=== PATIENT | female | born 1985 | race Caucasian/White ===

== ENCOUNTER 2016-10-15 14:52 | Inpatient (IN) | payer MEDICAID ==
[~2016-10-15] VITALS: Ht 157.5 cm; Wt 93.0 kg
[~2016-10-15 14:52] MED LIST: CEPH500; FERR324T4 PO; OXYC-360 PO; PRENTAB72 PO; SENN1TAB11 PO
[2016-10-22 10:05] VITALS: BP 129/71; PULSE 93
--- NOTE | 2016-10-22 10:40 | MH ---
cc: SPARKLE MA DATE OF ADMISSION 10/22/2016 REASON FOR ADMISSION 1. Intrauterine at 39 weeks. 2. History of deliveries x 2 HISTORY OF PRESENT ILLNESS Ms. Garcia is a 31-year-old female para 2-0-3-2 who is at 39 weeks plus today and is being brought in for a repeat section. She is 39 weeks by early ultrasound and dates and she has been followed in the office without any significant problems. She did have a history of oligohydramnios in previous pregnancies and we had followed that. She understands the risks and the benefits of the procedure and has agreed to proceed. PAST OB HISTORY She is para 2-0-3-2. She has had two sections at term, two SABs and one TAB. 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 PAST SURGICAL HISTORY She has had sections x 2. PAST MEDICAL HISTORY History of oligohydramnios. SOCIAL HISTORY She is single. She does not smoke, drink or take drugs. FAMILY HISTORY Remarkable for melanotic colon cancer, high cholesterol, high blood pressure, depression, diabetes and Alzheimer's. CURRENT MEDICATIONS vitamins. ALLERGIES No known drug allergies. REVIEW OF SYSTEMS No headaches, no shortness of breath, no chest pain or pressure. The baby is moving well. She denies any rupture of membranes or bleeding. PHYSICAL EXAMINATION GENERAL: A well-developed, well-nourished female in no acute distress, resting comfortably. VITAL SIGNS: Blood pressure is 120/78. Her weight is 205. HEENT: Normocephalic, atraumatic. NECK: Supple. Trachea is in the midline. No thyromegaly or adenopathy. CHEST: Clear to auscultation. HEART: Regular rate and rhythm, without murmur or gallop. ABDOMEN: Gravid, soft, nontender. The fundus is nontender. The baby feels to be in vertex presentation. PELVIC EXAM: Deferred. EXTREMITIES: There is no clubbing or cyanosis. There is a little bit of 1+ pitting edema in the lower extremities. ASSESSMENT AND PLAN 1. Intrauterine at 39+ weeks with a previous section x 2. We will go ahead and repeat that. We will go ahead and give her prophylactic antibiotics for that as well. 2. History of oligohydramnios. We will follow this. R. Sparkle Ma MD RJV/SSB /10:12 AM /10:31 AM
[2016-10-22] MEDS ORDERED: OXYTOCIN 10 UNIT/ML AMP ONE (11:02)
[2016-10-22 11:04] LABS: BACTERIA, URINE MOD /hpf; BLOOD, URINE NEG (NEG); COMMENT (UR) CULTURE INDICATED; CULTURE IF INDICATED CULTURE INDICATED; GLUCOSE,URINE NEG (NEG); HYALINE CAST, URINE 1 /lpf (RARE); KETONE, URINE TRACE mg/dL (NEG); MUCUS URINE FEW /lpf (OCC); NITRITE,URINE NEG (NEG); SQUAMOUS EPITHELIAL CELL URINE 4 /hpf (0-5); URINE COLOR YELLOW (YELLW/STRAW)
[2016-10-22 11:04] LABS: AUTOMATED NEUTROPHIL # 8.5 TH/MM3 (1.8-7.7); BASOPHIL % 0.3 % (0.0-2.0); EOSINOPHIL # 0.1 TH/MM3 (0-0.4); EOSINOPHIL % 0.9 % (0.0-4.0); HEMATOCRIT 37.1 % (35.0-46.0); HEMO FLAGS DIFF FINAL; LYMPH % 19.8 % (9.0-44.0); LYMPHOCYTE # 2.3 TH/MM3 (1.0-4.8); MEAN CELL VOLUME 82.5 FL (80.0-100.0); MEAN CORPUSCULAR HEMOGLOBIN 26.8 PG (27.0-34.0); MEAN CORPUSCULAR HGB CONC 32.5 % (32.0-36.0); MONO % 6.5 % (0.0-8.0); NEUT % 72.5 % (16.0-70.0); PLATELET COUNT 284 TH/MM3 (150-450); RED CELL DISTRIBUTION WIDTH 14.7 % (11.6-17.2); WHITE BLOOD COUNT 11.7 TH/MM3 (4.0-11.0)
[2016-10-22] MEDS ORDERED: LACTATED RINGER'S 1000 ML IV SCH (11:30)
[2016-10-22] MEDS ORDERED: LACTATED RINGER'S 1000 ML IV ONE (11:30)
[2016-10-22] MEDS ORDERED: ceFAZolin 2 GM PREMIX 50 ML IV SCH (11:30)
[2016-10-22] MEDS ORDERED: CITRIC ACID-SODIUM CITRATE LIQ 30 ML UDC PO SCH (11:30)
[2016-10-22 13:55] VITALS: BP 127/68; PULSE 109; RESP 17; TEMP 97.7; O2SAT 98
[2016-10-22] MEDS ORDERED: ONDANSETRON HCL 4 MG/2 ML VIAL ONE (13:56)
[2016-10-22] MEDS ORDERED: MORPHINE SULFATE PF 5 MG/10 ML VIAL ONE (13:56)
[2016-10-22] MEDS ORDERED: LACTATED RINGER'S 1,000 ML BAG IV ONE (14:13)
[2016-10-22 14:25] VITALS: BP 116/71; PULSE 100; O2SAT 97
[2016-10-22] MEDS ORDERED: OXYTOCIN 30 UNITS-500ML PREMIX 500 ML ONE (14:28)
[2016-10-22 14:34] VITALS: BP 124/67; PULSE 100; RESP 18; O2SAT 96
[2016-10-22 14:50] VITALS: BP 127/73; PULSE 95; RESP 18; TEMP 97.9; O2SAT 99
[2016-10-22 15:50] VITALS: BP 125/66; PULSE 85; RESP 16; TEMP 98.1
[2016-10-22] MEDS ORDERED: SIMETHICONE 80 MG CHEWABLE TAB PO PRN (17:15)
[2016-10-22] MEDS ORDERED: OXYTOCIN 30 UNITS-500ML PREMIX 500 ML IV ONE ×2 (17:15)
[2016-10-22] MEDS ORDERED: ONDANSETRON HCL 4 MG/2 ML VIAL IV PUSH PRN (17:15)
[2016-10-22] MEDS ORDERED: SODIUM CHLORIDE 0.9% FLUSH 5 ML FLUSH IV PRN (17:15)
[2016-10-22] MEDS ORDERED: ZOLPIDEM TARTRATE 5 MG TAB PO PRN (17:15)
[2016-10-22] MEDS: SODIUM CHLORIDE 0.9% FLUSH 5 ML FLUSH IV SCH (20:25)
[2016-10-22] MEDS ORDERED: LACTATED RINGER'S 1000 ML INJ 1,000 ML IV SCH (22:04)
[2016-10-23] MEDS ORDERED: OXYTOCIN 30 UNITS-500ML PREMIX 500 ML IV PRN (03:15)
[2016-10-23] MEDS: oxyCODONE/ACETAMINOPHEN 5 MG/325 MG TAB PO PRN ×4 (04:00→19:24)
[2016-10-23 05:57] LABS: AUTOMATED NEUTROPHIL # 7.7 TH/MM3 (1.8-7.7); BASOPHIL % 0.2 % (0.0-2.0); EOSINOPHIL % 0.5 % (0.0-4.0); HEMATOCRIT 28.8 % (35.0-46.0); HEMO FLAGS DIFF FINAL; LYMPH % 13.7 % (9.0-44.0); LYMPHOCYTE # 1.3 TH/MM3 (1.0-4.8); MEAN CELL VOLUME 82.7 FL (80.0-100.0); MEAN CORPUSCULAR HEMOGLOBIN 27.4 PG (27.0-34.0); MEAN CORPUSCULAR HGB CONC 33.2 % (32.0-36.0); NEUT % 78.6 % (16.0-70.0); PLATELET COUNT 226 TH/MM3 (150-450); RED BLOOD COUNT 3.48 MIL/MM3 (4.00-5.30); RED CELL DISTRIBUTION WIDTH 14.9 % (11.6-17.2); WHITE BLOOD COUNT 9.8 TH/MM3 (4.0-11.0)
--- NOTE | 2016-10-23 10:21 | HHI.OB ---
Subjective Post Operative Day: 1 Objective Vitals/I&O Vital Signs Date Time Temp Pulse Resp B/P Pulse Ox O2 Delivery O2 Flow Rate FiO2 10/22/16 14:50 95 127/73 10/22/16 14:34 124/67 10/22/16 14:34 100 18 96 10/22/16 14:25 100 116/71 97 10/22/16 13:55 97.7 109 17 127/68 98 Result Diagram: 10/23/16 0519 Objective Remarks GENERAL: Well-nourished, well-developed patient. CARDIOVASCULAR: Regular rate and rhythm without murmurs, gallops, or rubs. RESPIRATORY: Breath sounds equal bilaterally. No accessory muscle use. ABDOMEN/GI: Abdomen soft, non-tender, bowel sounds present. Incision: dressing, Clean, dry and intact. Fundus: Firm, non-tender at umbilicus. GENITOURINARY: Light to moderate bleeding. EXTREMITIES: No cyanosis or edema, non-tender, without signs of DVT. Medications and IVs Current Medications Medications (Trade) Dose Ordered Sig/Richard Route Start Time Stop Time Status Last Admin (Lr 1000 ml Inj) 1,000 ml @ 100 mls/hr Q10H IV 10/22/16 22:04 10/23/16 18:03 10/22/16 20:27 (NS Flush) 2 ml BID IV 10/22/16 21:00 (NS Flush) 2 ml UNSCH PRN IV 10/22/16 17:15 (Mylicon Chew) 80 mg QID PRN PO 10/22/16 17:15 (Percocet 5-325 Mg) 1 tab Q4H PRN PO 10/22/16 17:15 10/23/16 08:27 (Percocet 5-325 Mg) 2 tab Q4H PRN PO 10/22/16 17:15 (Estefani-Colace) 2 tab Q12H PRN PO 10/22/16 17:15 (Ambien) 5 mg HS PRN PO 10/22/16 17:15 (M-M-R Ii Inj) 0.5 ml ONCE ONCE SQ 10/23/16 16:00 10/23/16 16:01 (Boostrix Inj) 0.5 ml ONCE ONCE IM 10/23/16 16:00 10/23/16 16:01 (Zofran Inj) 4 mg Q6H PRN IV PUSH 10/22/16 17:15 10/22/16 17:46 Assessment/Plan Problem List: (1) Anemia Plan: treat pp (2) S/P repeat low transverse Plan: routine Assessment and Plan POD #1 pt doing well will shower today and remove dressing added motrin to oral pain meds routine post op care Discharge Planning consider dc in 1-2 days Radha Buchanan Oct 23, 2016 10:20
--- NOTE | 2016-10-23 10:22 | HHI.DCPOC ---
Discharge Care Plan Diagnosis: (1) S/P repeat low transverse (2) Anemia Your Health Problems Are: delivery Report Symptoms to Your Doctor -Temperate above 100.5 degrees -Redness, of incision or excessive or foul smelling drainage -Unusual pain or calf pain -Increased vaginal bleeding -Painful or difficulty urinating -Feelings of extreme sadness or anxiety after 2 weeks Goals to Promote Your Health * To prevent worsening of your condition and complications * To maintain your health at the optimal level Directions to Meet Your Goals Take your medications as prescribed Follow your dietary instruction Follow activity as directed Ensure plenty of rest for recovery Drink fluids for hydration Keep your appointments as scheduled Take your immunizations and boosters as scheduled If your symptoms worsen call your PCP, if no PCP go to Urgent Care Center or Emergency Room Smoking is Dangerous to Your Health. Avoid second hand smoke Call the 24-hour crisis hotline for domestic abuse at Radha Buchanan Oct 23, 2016 10:21
[2016-10-23] MEDS: DOCUSATE SODIUM 50 MG/SENNA 8.6 MG TAB PO PRN (13:30)
[2016-10-23] MEDS: IBUPROFEN 600 MG TAB PO PRN ×2 (13:30→19:25)
[2016-10-23] MEDS ORDERED: DIPHTH/TETANUS/ACEL PERTUSSIS (BOOSTER) 0.5 ML VIAL/PFS IM ONE (16:00)
[2016-10-23] MEDS ORDERED: MEASLES, MUMPS, RUBELLA VACCINE 0.5 ML VIAL SQ ONE (16:00)
[2016-10-24] MEDS: oxyCODONE/ACETAMINOPHEN 5 MG/325 MG TAB PO PRN ×2 (04:05→08:54)
[2016-10-24] MEDS: DOCUSATE SODIUM 50 MG/SENNA 8.6 MG TAB PO PRN (04:05)
[2016-10-24] MEDS: IBUPROFEN 600 MG TAB PO PRN ×2 (04:05→13:32)
[2016-10-24] MEDS ORDERED: OXYC1TAB63 PO (08:36)
[2016-10-24] MEDS ORDERED: IBUP-232 PO (08:36)
[2016-10-24] MEDS: SODIUM CHLORIDE 0.9% FLUSH 5 ML FLUSH IV SCH (08:56)
--- NOTE | 2016-10-24 12:31 | HHI.OB ---
Subjective Post Operative Day: 2 Objective Result Diagram: 10/23/16 0519 Objective Remarks GENERAL: Well-nourished, well-developed patient. CARDIOVASCULAR: Regular rate and rhythm without murmurs, gallops, or rubs. RESPIRATORY: Breath sounds equal bilaterally. No accessory muscle use. ABDOMEN/GI: Abdomen soft, non-tender, bowel sounds present. Incision: , Clean, dry and intact. Fundus: Firm, non-tender at umbilicus. GENITOURINARY: Light to moderate bleeding. EXTREMITIES: No cyanosis or edema, non-tender, without signs of DVT. Medications and IVs Current Medications Medications (Trade) Dose Ordered Sig/Richard Route Start Time Stop Time Status Last Admin (NS Flush) 2 ml BID IV 10/22/16 21:00 (NS Flush) 2 ml UNSCH PRN IV 10/22/16 17:15 (Mylicon Chew) 80 mg QID PRN PO 10/22/16 17:15 (Percocet 5-325 Mg) 1 tab Q4H PRN PO 10/22/16 17:15 10/23/16 08:27 (Percocet 5-325 Mg) 2 tab Q4H PRN PO 10/22/16 17:15 10/24/16 08:54 (Estefani-Colace) 2 tab Q12H PRN PO 10/22/16 17:15 10/24/16 04:05 (Ambien) 5 mg HS PRN PO 10/22/16 17:15 (Zofran Inj) 4 mg Q6H PRN IV PUSH 10/22/16 17:15 10/22/16 17:46 (Motrin) 600 mg Q6H PRN PO 10/23/16 10:15 10/24/16 04:05 Assessment/Plan Problem List: (1) Anemia Plan: treat pp (2) S/P repeat low transverse Plan: routine Assessment and Plan POD #2 pt doing well denies dizziness, sob with ambulation pain well managed with oral pain meds routine care Discharge Planning consider dc in 1-2 days Radha Buchanan Oct 24, 2016 12:31
--- NOTE | 2016-10-24 14:26 | HHI.DS ---
Admission Date Oct 22, 2016 at 09:53 Discharge Date: Oct 24, 2016 Admitting Diagnosis 39 weeks previous c section x 2 Diagnosis: (1) Anemia Diagnosis: Secondary (2) S/P repeat low transverse Diagnosis: Principal Delivery Date: Oct 22, 2016 : Repeat Reason: previous c section x 2 Brief History 39 week previous c setion repeat c section Hospital Course routine Pt Condition on Discharge: Good Discharge Disposition: Discharge Home Discharge Instructions Diet Instructions: As Tolerated, No Restrictions Activities You Can Perform: Shower Only-No Bath, Pelvic Rest Activities to Avoid: Strenuous Activity, Sexual Activity Follow up Referrals: MEDICAL RESEARCH ASSOCIATE - 1 Week New Medications: Ibuprofen (Ibuprofen) 600 Mg Tab 600 MG PO Q6H PRN pain #30 TAB Oxycodone-Acetaminophen (Oxycodone-Acetaminophen) 5-325 mg Tab 1 TAB PO Q4H PRN moderate pain #30 TAB Continued Medications: Vit W/ Ferrous Fumara () Tab 1 PO Radha Buchanan Oct 24, 2016 14:26
--- NOTE | 2016-10-25 15:45 | MP ---
cc: New MA MD DATE OF SURGERY: 10/22/2016 PREOPERATIVE DIAGNOSIS: Intrauterine at 39 weeks. Previous section times two for repeat. POSTOPERATIVE DIAGNOSIS: Intrauterine at 39 weeks. Previous section times two for repeat. OPERATION: Repeat low transverse section. ANESTHESIA: Spinal. SURGEON: New Ma MD. FINDINGS: Normal male infant with a weight of 8 lbs, 9 ounces, 's 8 and 9, normal tubes, normal ovaries, normal cul-de-sacs. COUNTS: Correct. ESTIMATED BLOOD LOSS 600 cc. FLUIDS/CRYSTALLOIDS: The patient tolerated the procedure well and went to the Recovery Room in good condition. The placenta could not be donated because of the traveling to the [place] infested area around [place]. CONDITION: The patient tolerated the procedure well and went to the recovery room in satisfactory condition. PROCEDURE: The patient was taken to the operating room identified by name band and verbally. She was given a spinal anesthetic. A Klein catheter was inserted. She was prepped and draped for section. The old Pfannenstiel incision was removed and excised completely and the incision was taken down to the fascia. The fascia was taken off the rectus muscle by blunt and sharp dissection. The peritoneum was entered under direct vision without complication. The incision was extended with care to avoid the urinary bladder. A bladder blade was placed and a bladder flap created over the lower uterine segment which was well-developed. The uterus was then scored in a transverse manner along the lower uterine segment and taken down in the midline until the uterine cavity was entered. The incision was extended with the surgeon's fingers. The vertex was grasped and delivered through the incision without difficulty. The hypopharynx and nasopharynx were suctioned. The remainder of the infant was delivered. The cord was doubly clamped and cut and the handed to the resuscitation team that was present. Cord blood was obtained. The placenta was delivered manually without difficulty. The uterus was curettaged twice with a wet lap. The uterine incision was repaired with 2-0 Vicryl a running locking fashion, the second layer imbricating the first. The cul-de-sac and gutters were cleaned of blood and debris with a large amount of irrigation. The uterus was delivered back into the abdomen. The incision was again inspected and was hemostatic. The rectus muscles were reapproximated with 0 Vicryl in an interrupted fashion. The fascia was repaired with 0 Vicryl from lateral to midline bilaterally in a running fashion. The subcutaneous tissue was repaired with 3-0 Vicryl. The skin was repaired with 4-0 Monocryl in a subcuticular manner. Steri-Strips were applied. The wound was sterilely dressed. She tolerated the procedure well and went to the recovery room in good condition. R. MD ELIAN Campos/dante /1:52 PM /3:32 PM
== END 2016-10-24 14:15 | disposition home or self-care (01) | DRG 766 ==
LOC: H2EB 10-22 09:53 → H1EA 10-22 15:41
PROVIDERS: ADMIT Obstetrics & Gynecology; ATTEND Obstetrics & Gynecology
PROC: 10D00Z1 Extraction of Products of Conception, Low, Open Approach (ICD-10-PCS; principal; 2016-10-22)
DX: O34.219 Maternal care for unspecified type scar from previous cesarean delivery (principal); O99.02 Anemia complicating childbirth; D64.9 Anemia, unspecified; Z37.0 Single live birth; Z3A.39 39 weeks gestation of pregnancy
CPT/HCPCS: 59025; 81001; 85025; 86850; 86900; 86901; 87086; 90715; J0690; J2274; J2405; J2590; J3010; J7120

== ENCOUNTER → 2018-01-08 | Outpatient (CLI) | payer MEDICAID, OTHER ==
[~2018-01-08] MED LIST changes: -CEPH500; +DIAZ5; -FERR324T4 PO; +FERR325T18 PO; +FEXO15TA PO; +IBUP-232 PO; +MULT-65 PO; +NORG1TAB28 PO; -OXYC-360 PO; +OXYC1TAB63 PO; +PERC5TAB12 PO; +PROZ40CA PO; -SENN1TAB11 PO; +VENTAER INH; +VITA3000 PO
[2018-01-08 13:00] LABS: HEMATOCRIT 41.9 % (35.0-46.0); HEMOGLOBIN 13.6 GM/DL (11.6-15.3); MEAN CELL VOLUME 85.9 FL (80.0-100.0); MEAN CORPUSCULAR HEMOGLOBIN 27.9 PG (27.0-34.0); MEAN CORPUSCULAR HGB CONC 32.4 % (32.0-36.0); PLATELET COUNT 435 TH/MM3 (150-450); RED BLOOD COUNT 4.88 MIL/MM3 (4.00-5.30); RED CELL DISTRIBUTION WIDTH 13.5 % (11.6-17.2); WHITE BLOOD COUNT 12.5 TH/MM3 (4.0-11.0)
== END ==
LOC: CPRE 12:29
PROVIDERS: ATTEND Obstetrics & Gynecology
DX: Z01.812 Encounter for preprocedural laboratory examination (principal)
CPT/HCPCS: 36415; 84703; 85027

== ENCOUNTER → 2018-01-14 | Day surgery (SDC) | payer MEDICAID, OTHER ==
[~2018-01-14] VITALS: Ht 157.5 cm; Wt 74.4 kg
[~2018-01-14] MED LIST changes: +*morphine SULFATE 4 MG/ML PERIprocedure ONLY ONE; +CHLORHEXIDINE GLUCONATE 2 % 1 PACK (2 CLOTHS) TOPICAL PRN; +DO NOT ADM ANY ANTICOAGULANT DRUGS PRN; +EPINEPHrine HCL (1:1000) 1 MG/ML VIAL IV ONE; -IBUP-232 PO; +KETOROLAC TROMETHAMINE 30 MG/ML (IVP) VIAL IV PUSH ONE; +LACTATED RINGER'S 1000 ML IV PRN; +LIDOCAINE HCL 1% PF 5 ML SYRINGE OTHER ONE; +METOPROLOL TARTRATE 25 MG TAB PO PRN; +MIDAZOLAM HCL 2 MG/2 ML VIAL ONE; +ONDANSETRON HCL 4 MG/2 ML VIAL IV PRN; -OXYC1TAB63 PO; +POVIDONE IODINE 5% (ANTISEPSIS KIT) 4 APPLICATIONS EACH NARE PRN; -PRENTAB72 PO; +PROPOFOL 200 MG/20 ML AMP IV ONE; +ROCURONIUM INJ 50 MG/5 ML SYRINGE IV PUSH ONE; +SODIUM CHLORID 0.9% 500 ML IV PRN; +ePHEDrine/NS 25 MG/5 ML SYRINGE IV ONE; +oxyCODONE/ACETAMINOPHEN 5 MG/325 MG TAB PO PRN
--- NOTE | 2018-01-14 15:19 | MP ---
cc: New Ma MD DATE OF OPERATION: 01/14/2018 DATE OF OPERATION: 01/14/2018 PREOPERATIVE DIAGNOSIS: Desires permanent sterilization. POSTOPERATIVE DIAGNOSES: 1. Desires permanent sterilization. 2. Pelvic adhesions. 3. Right ovarian cyst. PROCEDURE PERFORMED: Examination under anesthesia, laparoscopic exam with bilateral tubal ligation, aspiration of right ovarian cyst and lysis of adhesions. ANESTHESIA: General endotracheal intubation. SURGEON: BARBIE Arriaga FINDINGS: On examination under anesthesia, vagina was clean. The cervix was clean. The uterus normal size, shape and consistency and mobile. The adnexa were negative for masses. Laparoscopic exam revealed normal uterus, normal fallopian tubes, normal in length and caliber. Normal left ovary. The right ovary had a 2.4 x 2.5 simple follicular cyst. There was scar tissue of the omentum to the anterior abdominal wall in the left lower quadrant and also in the right periumbilical area. COMPLICATIONS: We were unable to remove the tubes, because we were unable to put the third port because of the adhesions. The counts were correct. Estimated blood loss was minimal. The patient tolerated the procedure well, went to the recovery room in good condition. DESCRIPTION OF PROCEDURE: The patient was taken to the operating room, identified by name band and verbally, given a general anesthetic, prepped and draped in the dorsal lithotomy position for laparoscopic surgery. Her bladder was drained with an in and out catheter and the timeout was taken. An examination under anesthesia with the above findings was done. A speculum was placed in the vagina. The anterior lip of the cervix was grasped with a single-tooth tenaculum. The cervix was then cannulated with the Hulka clamp, and attention was turned to the subumbilical area. A small subumbilical incision was made and using the 5 mm trocar, we entered the abdomen under direct vision without difficulty. There were some adhesions around that area. There were adhesions to the left lower quadrant and the right periumbilical area. Once a pneumoperitoneum was created and we could clearly see the adhesive disease, we decided to put 1 trocar in the right lower quadrant below the adhesive disease. This was done under direct vision without difficulty. On the left side, we were going to place a port; however, we did not think it was safe because of the adhesions in this area, which at the end of the case, we were able to take down. The first order of business was to tie the fallopian tubes. We cauterized in 3 portions in the midportion with the Harmonic scalpel and came behind that with a Kleppinger forceps in the midportion of each tube. Once this had been accomplished, we attempted to take the adhesions down on the left lower quadrant and we were successful in doing that with the Harmonic scalpel. There was a small piece of endometriosis, possibly on the left ovary. We attempted to biopsy this several times but with just 2 ports, we were unable to do that and we elected just to cauterize that. The right ovary had a 2 x 3 cm ovarian cyst and using the Harmonic scalpel as a drill, we drilled into it and we saw clear fluid. It looked like a simple follicular cyst. Bleeding was minimal with this as well. We irrigated the pelvis with some irrigation and removed the laparoscope under direct vision and the air was released through the second puncture. She tolerated the procedure well. We fixed the incisions with 4-0 Monocryl in a subcuticular manner and she was taken to the recovery room in satisfactory condition. R. MD ELIAN Campos/SHOBHA , 02:50 PM , 03:17 PM
[2018-01-14 16:58] VITALS: BP 113/69; PULSE 74; RESP 18; TEMP 98.4; O2SAT 100
== END | disposition home or self-care (01) ==
LOC: HSDC 10:59
PROVIDERS: ATTEND Obstetrics & Gynecology
DX: Z30.2 Encounter for sterilization (principal); N83.02 Follicular cyst of left ovary; N73.6 Female pelvic peritoneal adhesions (postinfective)
CPT/HCPCS: 00840; 49322; 58615; J0171; J1885; J2250; J2270; J3010; J7120